=== PATIENT | male | born 1990 | race Caucasian/White ===

== ENCOUNTER 2024-10-05 07:49 | Day surgery (SDC) | payer BC ==
[2024-10-05] MEDS: Lactated Ringers 1,000 ML IV SCH (08:10)
[2024-10-05] MEDS ORDERED: Ondansetron 4 MG/2 ML SDV ONE (08:14)
[2024-10-05] MEDS: Ondansetron 4 MG/2 ML SDV IVPUSH ONE (08:23)
[2024-10-05] MEDS ORDERED: propofoL 500 MG/50 ML 50 ML ONE (08:46)
[2024-10-05] MEDS ORDERED: dexmedeTOMIDine HCl 200 MCG/2 ML SDV ONE (09:35)
[2024-10-05] MEDS ORDERED: Lactated Ringers 1,000 ML IV SCH (10:30)
== END 2024-10-05 11:05 | disposition home or self-care (01) ==
LOC: MW.SDS 07:49
PROVIDERS: ATTEND Surgery
DX: D12.3 Benign neoplasm of transverse colon (principal); F32.A Depression, unspecified; E78.5 Hyperlipidemia, unspecified; E66.9 Obesity, unspecified; Z68.36 Body mass index [BMI] 36.0-36.9, adult; Z79.899 Other long term (current) drug therapy; Z80.0 Family history of malignant neoplasm of digestive organs
CPT/HCPCS: 43239; 45380; J2405; J2704; J7120; 00813